=== PATIENT | male | born 1965 | race Caucasian/White ===

== ENCOUNTER 2023-02-17 08:54 | Day surgery (SDC) | payer MEDICAID ==
[2023-02-17] VITALS (12 sets, daily range): BP systolic 136–172; BP diastolic 68–93; PULSE 54–67; RESP 12–19; TEMP 97.3; O2SAT 92–98
[~2023-02-17] VITALS: Ht 193 cm; Wt 109.4 kg
[~2023-02-17 08:54] MED LIST: ENOX100S3 SQ; METF-436 PO; MULT-1085 PO; SERT50TA PO; TRAM50TA2 PO; WARF-55 PO
[2023-02-17] MEDS ORDERED: DEXTROSE 15 GM of carb/4 tabs (each vial/BOTTLE has 4 tablets) PO PRN ×2 (09:40)
[2023-02-17] MEDS ORDERED: normal saline 1,000 ML IV SCH (09:40)
[2023-02-17] MEDS ORDERED: nitroGLYCERIN 0.4mg SUBLingual tab SL PRN ×2 (09:40→13:15)
[2023-02-17] MEDS ORDERED: LORazepam 0.5 MG tablet PO PRN (09:40)
[2023-02-17] MEDS ORDERED: MESSAGE TO PHARMACY PO ONE (09:40)
[2023-02-17] MEDS ORDERED: diphenhydrAMINE 25mg capsule PO PRN (09:40)
[2023-02-17] MEDS ORDERED: glucagon, human recombinant 1mg kit SUBCUT PRN (09:40)
[2023-02-17] MEDS ORDERED: insulin Lispro (HumaLOG) vial - multi-dose SQ SCH (09:40)
[2023-02-17] MEDS ORDERED: dextrose 50%-water 50ml dispensing syringe IV PRN ×2 (09:40)
[2023-02-17] MEDS ORDERED: DULA3PEN (10:08)
[2023-02-17] MEDS ORDERED: NITR0.4T48 (10:09)
[2023-02-17] MEDS ORDERED: UMEC1DIS (10:13)
[2023-02-17] MEDS ORDERED: [UNRECOGNIZED DRUG - OTHER] (10:13)
[2023-02-17 10:27] LABS: MAGNESIUM 1.7 MG/DL (1.5-2.4)
[2023-02-17] MEDS ORDERED: fentaNYL/PF 50MCG/1 ML 2ML syringe ONE (11:47)
[2023-02-17] MEDS ORDERED: LIDOcaine 1% 30ml preserv. free vial ONE (11:47)
[2023-02-17] MEDS ORDERED: midazolam 1 mg/ML 2ml injection ONE (11:47)
[2023-02-17] MEDS ORDERED: iohexol 350 MG/ML 50ML vial IV ONE ×2 (11:48→12:30)
[2023-02-17] MEDS ORDERED: iohexol 350MG/ML 100ml bottle IV ONE (11:48)
[2023-02-17] MEDS ORDERED: ondansetron/PF 4mg/2ml inj IV PRN (13:15)
[2023-02-17] MEDS ORDERED: normal saline 1000ml 1,000 ML IV SCH (13:15)
[2023-02-17] MEDS ORDERED: proCHLORperazine 10 MG/2 ml inj IV PRN (13:15)
[2023-02-17] MEDS ORDERED: HYDROcodone/acetaminophen 5mg/325mg tablet PO PRN (13:15)
[2023-02-17] MEDS ORDERED: HYDROcodone/acetaminophen 10/325mg tab PO PRN (13:15)
[2023-02-17] MEDS ORDERED: OXAZEpam 15mg capsule PO PRN (13:15)
[2023-02-17] MEDS ORDERED: insulin glargine (Lantus) pen - multi-dose SQ SCH (21:00)
[2023-02-18 14:51] LABS: TRIIODOTHYRONINE (T3) 104 ng/dL (71-180)
== END 2023-02-17 19:00 | disposition home or self-care (01) ==
LOC: SSTAY O 08:54
PROVIDERS: ATTEND Internal Medicine Cardiovascular Disease
DX: I25.118 Atherosclerotic heart disease of native coronary artery with other forms of angina pectoris (principal); J44.9 Chronic obstructive pulmonary disease, unspecified; M47.819 Spondylosis without myelopathy or radiculopathy, site unspecified; G47.33 Obstructive sleep apnea (adult) (pediatric); M54.30 Sciatica, unspecified side; I10 Essential (primary) hypertension; E78.5 Hyperlipidemia, unspecified; E11.42 Type 2 diabetes mellitus with diabetic polyneuropathy; Z86.14 Personal history of Methicillin resistant Staphylococcus aureus infection; Z88.8 Allergy status to other drugs, medicaments and biological substances; Z88.5 Allergy status to narcotic agent; Z86.16 Personal history of COVID-19; Z90.81 Acquired absence of spleen; Z87.442 Personal history of urinary calculi; Z87.891 Personal history of nicotine dependence; Z79.84 Long term (current) use of oral hypoglycemic drugs; Z79.899 Other long term (current) drug therapy
CPT/HCPCS: 36415; 82310; 82948; 83735; 83970; 84439; 84443; 84480; 84484; 93005; 93458; 99152; 99153; J1644; J1815; J2250; J3010; J3490; J7030; Q0163; Q9967; A6258; C1760